=== PATIENT | female | born 1955 | race Caucasian/White ===

== ENCOUNTER 2017-07-29 09:41 | Outpatient (CLI) | payer OTHER ==
--- NOTE | 2017-07-29 10:18 | RAD ---
PA AND LATERAL CHEST: History: Cough. Comparison: 05-09-16 FINDINGS: There has been development of an anterior segment right upper lobe pneumonic appearing infiltrate. Th e left lung is clear. Heart size is within normal limits. There are arthrosclerotic changes of the ao rta. IMPRESSION: Right upper lobe pneumonia. POS: [facility]
== END 2017-07-29 09:42 | disposition home or self-care (01) ==
LOC: RAD-FRANK 09:41
PROVIDERS: ATTEND Nurse Practitioner Family
DX: J40 Bronchitis, not specified as acute or chronic (principal); J18.9 Pneumonia, unspecified organism
CPT/HCPCS: 71046

== ENCOUNTER 2017-09-21 14:09 | Outpatient (CLI) | payer OTHER | END 2017-09-21 14:10 | disposition home or self-care (01) | LOC: BICMAMMO 14:09 | PROVIDERS: ATTEND Nurse Practitioner Family | DX: Z12.31 Encounter for screening mammogram for malignant neoplasm of breast (principal) | CPT/HCPCS: 77063; 77067 ==

== ENCOUNTER 2017-11-17 15:43 | Outpatient (CLI) | payer OTHER ==
--- NOTE | 2017-11-17 15:55 | RAD ---
PA AND LATERAL VIEWS OF CHEST: Date: 11/17/17 HISTORY: Cough and fever. FINDINGS/IMPRESSION: Comparison made with exam of 07/29/17. The heart size is normal. The left lung is clear. The consolidation in the anterior segment of the right upper lobe noted on the previous exam demonstr ates interval improvement, but not complete resolution. Increased density is also seen in the right h ilar/perihialr region. Further evaluation with contrast enhanced CT scan is recommended. CODE T. POS: [facility]
== END 2017-11-17 15:44 | disposition home or self-care (01) ==
LOC: RAD-FRANK 15:43
PROVIDERS: ATTEND Nurse Practitioner Family
DX: R05 Cough (principal); R50.9 Fever, unspecified; R91.8 Other nonspecific abnormal finding of lung field
CPT/HCPCS: 71046

== ENCOUNTER 2017-11-23 13:36 | Outpatient (CLI) | payer OTHER ==
[~2017-11-23 13:36] MED LIST: Iopamidol 370 76% 100 ML VIAL ONE
== END 2017-11-23 13:37 | disposition home or self-care (01) ==
LOC: BICCT 13:36
PROVIDERS: ATTEND Nurse Practitioner Family
DX: J18.9 Pneumonia, unspecified organism (principal); R91.8 Other nonspecific abnormal finding of lung field; D71 Functional disorders of polymorphonuclear neutrophils; K44.9 Diaphragmatic hernia without obstruction or gangrene; I25.10 Atherosclerotic heart disease of native coronary artery without angina pectoris; E04.1 Nontoxic single thyroid nodule
CPT/HCPCS: 71260; 82565

== ENCOUNTER 2017-12-29 12:43 | Outpatient (CLI) | payer OTHER ==
--- NOTE | 2017-12-29 13:07 | RAD ---
PA AND LATERAL CHEST: Date: 12-29-17 History: Dyspnea. Comparison: 11-17-17 FINDINGS: There is patchy parenchymal opacity seen within the right hilar region with linear densities extendin g laterally. Similar but more prominent findings were present on the prior exam. Given the persistenc e of these findings since prior exam, CT thorax is recommended for further evaluation. Left lung is c lear. Cardiac silhouette and pulmonary vasculature are within normal limits. There is evidence of stew or granulomatous disease. No other interval change. IMPRESSION: Patchy parenchymal opacity and linear densities within the right hilar region and right mid lung zone . Findings could potentially represent residual pneumonia, but given persistence of this finding over this period of time, CT scan thorax is recommended to exclude neoplastic process. POS: [facility]
== END 2017-12-29 12:44 | disposition home or self-care (01) ==
LOC: RAD 12:43
PROVIDERS: ATTEND Internal Medicine Pulmonary Disease
DX: R06.00 Dyspnea, unspecified (principal); R91.8 Other nonspecific abnormal finding of lung field; J98.4 Other disorders of lung
CPT/HCPCS: 71046

== ENCOUNTER 2018-01-29 13:50 | Outpatient (CLI) | payer OTHER ==
--- NOTE | 2018-01-29 14:19 | RAD ---
CHEST 2 VIEWS: Date: 01/29/18 HISTORY: Dyspnea. COMPARISON: Chest radiograph dated 12/29/17. FINDINGS: Abnormal right hilar mass-like opacity with elevation of the minor fissure. Left lung relatively tracey r. IMPRESSION: Unchanged right upper lobe opacity with elevation of right minor fissure. This is concern ing for underlying malignancy. Follow-up CT chest recommended. CODE T. POS: [facility]
== END 2018-01-29 13:51 | disposition home or self-care (01) ==
LOC: RAD 13:50
PROVIDERS: ATTEND Internal Medicine Pulmonary Disease
DX: R06.00 Dyspnea, unspecified (principal); R91.8 Other nonspecific abnormal finding of lung field
CPT/HCPCS: 71046

== ENCOUNTER 2018-02-26 12:55 | Outpatient (CLI) | payer OTHER ==
--- NOTE | 2018-02-26 15:57 | CT ---
CT CHEST WITH CONTRAST: Multiple axial tomograms are obtained through the chest with IV enhancement. INDICATION: Recent chest film showed a right suprahilar fullness and evidence of volume loss in the right upper l obe with elevation of the fissure. FINDINGS: There is elevation of the minor fissure with focal parenchymal opacity along the fissure in the right upper lobe. This opacity has more of a linear configuration on coronal and sagittal imaging and sug gests focal volume loss which would explain the slight elevation. A focal mass is not identified. A n endobronchial lesion is not apparent by CT but should be excluded. Review of the lung reyes revealed scattered calcified granuloma in both lung reyes. There are 2 ca lcified granuloma in the posterior right lung base measuring up to 5 mm and there is calcified granul quang in the lingula on the left measuring approximately 3-4 mm. There is a noncalcified nodule in the right apical region measuring 3-4 mm. There is a 5 mm noncalci fied nodule in the right middle lobe peripherally. Mediastinum unremarkable with nonspecific lymph nodes. No adenopathy apparent. There is a sliding d iaphragmatic hernia. Comparison is made to a CT chest from [facility] dated 11/23/17. On juan miguel t exam, the right upper lobe opacification was present at that time and had no other confluent opacit y and was described as probably pneumonia. There has been significant decrease in the size of this p arenchymal opacity when compared to that exam and the findings today suggest residual atelectasis fro m a resolving pneumonia. IMPRESSION: 1. Persistent linear parenchymal opacity in the right upper lobe extending to the pleural surface. The parenchymal opacity has significantly decreased since 11/23/17 and findings probably represent res idual atelectasis in an area of resolving pneumonia. There is no evidence of hilar mass or adenopath y. 2. There are scattered pulmonary nodules as described above.. 3. Small fixed diaphragmatic hernia again noted. Suggest continued followup to assess continued resolution. POS: [facility]
== END 2018-02-26 12:56 | disposition home or self-care (01) ==
LOC: BICCT 12:55
PROVIDERS: ATTEND Internal Medicine Pulmonary Disease
DX: R91.1 Solitary pulmonary nodule (principal); K44.9 Diaphragmatic hernia without obstruction or gangrene; R91.8 Other nonspecific abnormal finding of lung field
CPT/HCPCS: 71260; 82565

== ENCOUNTER 2018-03-03 07:28 | Day surgery (SDC) | payer OTHER ==
[2018-03-02 14:20] VITALS: BMI 38.7
[~2018-03-03 07:28] MED LIST changes: -Iopamidol 370 76% 100 ML VIAL ONE; +Lidocaine 1% (PF) 30 ML VIAL ONE
[2018-03-03] MEDS ORDERED: Midazolam HCl 2 mg/2 ml Vial ONE (07:47)
[2018-03-03] MEDS ORDERED: Fentanyl 100 MCG/2 ML VIAL ONE (07:47)
[2018-03-03] MEDS ORDERED: Benzocaine 20% Spray 60 ML CAN ONE (07:47)
[2018-03-03] MEDS ORDERED: LIDOCAINE HCL 4% Topical Sol (4 ML SOLN.PK.G.) ONE (07:50)
--- NOTE | 2018-03-03 10:14 | OP ---
DATE OF PROCEDURE: 03/03/2018 SURGEON: Dr. Ozzie Wynn PROCEDURE: Diagnostic bronchoscopy. INDICATIONS: Right upper lung mass, atelectasis, rule out endobronchial disease. POST-BRONCHOSCOPY DIAGNOSIS: No evidence of any endobronchial obstruction, blood or pus. PROCEDURE IN DETAIL: After informed consent, the patient received DuoNeb and 4 mL of 4% lidocaine. During the procedure, she received 2 of Versed and 50 of fentanyl. The flexible video bronchoscope w as then passed via the right nostril. Pharynx, upper pharynx, and vocal cords were visualized and ma rked into the trachea, this was normal. [place] was sharp. Right lung was inspected initially. The right upper lung, particularly the apical anterior and posterior segments, no endobronchial obstructi on or blood or pus was seen. Area was lavaged with normal saline multiple times. The rest of the ri ght lung, middle and lower lobe was visualized and unremarkable. The left lung was inspected thereaf ter. The left upper and left lower visualized, once again no endobronchial obstruction, blood or pus was seen. The washings were obtained were sent for Gram stain and C&S. The patient tolerated the p rocedure well. BRIEF DISCHARGE NOTE: The patient tolerated the procedure well. Results will be made available to t he patient and family. Further recommendations after above.
== END 2018-03-03 10:35 | disposition home or self-care (01) ==
LOC: SDC 07:28
PROVIDERS: ATTEND Internal Medicine Pulmonary Disease
PROC: 0BJ08ZZ Inspection of Tracheobronchial Tree, Via Natural or Artificial Opening Endoscopic (ICD-10-PCS; principal; 2018-03-03)
DX: R91.8 Other nonspecific abnormal finding of lung field (principal); F17.200 Nicotine dependence, unspecified, uncomplicated
CPT/HCPCS: 87070; 87205; 99152; J2001; J2250; J3010; J7620

== ENCOUNTER 2018-07-08 13:36 | Outpatient (CLI) | payer OTHER ==
--- NOTE | 2018-07-08 14:57 | RAD ---
TWO VIEWS CHEST: DATE: 07/08/2018. PROVIDED CLINICAL HISTORY: Dyspnea. FINDINGS: Comparison 01/29/2018. Cardiac and mediastinal silhouette is unchanged in appearance. Interval decre ase in right upper lung zone parenchymal opacity. The lungs appear otherwise clear. There is no ple ural fluid or pneumothorax apparent. Degenerative changes are seen involving the thoracic spine. IMPRESSION: Interval decrease in conspicuity of right upper lung zone linear parenchymal opacity. POS: C
== END 2018-07-08 13:37 | disposition home or self-care (01) ==
LOC: RAD 13:36
PROVIDERS: ATTEND Internal Medicine Pulmonary Disease
DX: R06.00 Dyspnea, unspecified (principal)
CPT/HCPCS: 71046

== ENCOUNTER 2018-12-15 13:30 | Outpatient (CLI) | payer OTHER ==
--- NOTE | 2018-12-15 15:30 | MMO ---
Bilateral MAMMO Bilat Screen DDI+EBONY. CLINICAL HISTORY: Patient is 63 years old and is seen for screening. The patient has no family history of breast cancer. The patient has no personal history of cancer. The patient has a history of left Excisional Biopsy in 1993 - . VIEWS: The views performed were: bilateral craniocaudal with tomosynthesis and bilateral mediolateral oblique with tomosynthesis. FILMS COMPARED: The present examination has been compared to prior imaging studies performed at [facility] on 08/21/2014, 08/24/2015, 09/17/2016 and 09/21/2017. MAMMOGRAM FINDINGS: There are scattered fibroglandular densities. There is an asymmetry seen in the right breast in the central region and in the outer region. In the left breast, there are no suspicious masses, calcifications or areas of architectural distortion. IMPRESSION: ASYMMETRY IN THE RIGHT BREAST REQUIRES ADDITIONAL EVALUATION. RECOMMEND DIAGNOSTIC MAMMOGRAM. THE RESULTS OF THIS EXAM WERE SENT TO THE PATIENT. ACR BI-RADS Category 0 - Incomplete: Need additional imaging evaluation. [facility] will notify the patient of the need for additional imaging services. MAMMOGRAPHY NOTE: 1. A negative mammogram report should not delay a biopsy if a dominant of clinically suspicious mass is present. 2. Approximately 10% to 15% of breast cancers are not detected by mammography. 3. Adenosis and dense breasts may obscure an underlying neoplasm. Reported by: MADISYN PECK MD Electonically Signed: [id number]
== END 2018-12-15 13:31 | disposition home or self-care (01) ==
LOC: BICMAMMO 13:30
PROVIDERS: ATTEND Nurse Practitioner Family
DX: Z12.31 Encounter for screening mammogram for malignant neoplasm of breast (principal); N64.89 Other specified disorders of breast
CPT/HCPCS: 77063; 77067

== ENCOUNTER 2018-12-30 09:00 | Outpatient (CLI) | payer OTHER ==
--- NOTE | 2018-12-30 09:20 | RAD ---
EXAM: 2 views of the left humerus HISTORY: left arm pain COMPARISON: None FINDINGS: 2 views of the left humerus shows no evidence of acute fracture or dislocation. No degenera tive changes are seen. No soft tissue swelling is present. IMPRESSION: No evidence of acute osseous abnormality.
--- NOTE | 2018-12-30 09:21 | RAD ---
EXAM: 4 views of the right knee HISTORY: Knee pain COMPARISON: None FINDINGS: No knee effusion is seen. There is no evidence of acute fracture or dislocation. Mild trico mpartmental degenerative changes are seen. No soft tissue swelling is present. IMPRESSION: Mild degenerative changes without evidence of acute osseous abnormality.
== END 2018-12-30 09:01 | disposition home or self-care (01) ==
LOC: RAD-FRANK 09:00
PROVIDERS: ATTEND Nurse Practitioner Family
DX: M25.561 Pain in right knee (principal); M79.602 Pain in left arm; M17.11 Unilateral primary osteoarthritis, right knee

== ENCOUNTER 2019-01-04 13:32 | Outpatient (CLI) | payer OTHER ==
--- NOTE | 2019-01-04 14:13 | MMO ---
Right Breast MAMMO Unilat Diag DDI RT+EBONY. CLINICAL HISTORY: Patient is 63 years old and is seen for additional evaluation requested from prior study. The patient has no family history of breast cancer. The patient has no personal history of cancer. The patient has a history of left Excisional Biopsy in 1993 - cyst. VIEWS: The views performed were: right craniocaudal spot compression with tomosynthesis; right mediolateral oblique spot compression with tomosynthesis; and right mediolateral with tomosynthesis. FILMS COMPARED: The present examination has been compared to prior imaging studies performed at [facility] on 09/17/2016, 09/21/2017, 12/15/2018 and 01/04/2019. MAMMOGRAM FINDINGS: The focal asymmetry in the right outer mid posterior breast persists on comressed CC and ML views but not on comressed MLO view. It is not visualized on US. IMPRESSION: FINDING IN THE RIGHT BREAST IS PROBABLY BENIGN. FOLLOW-UP IN 6 MONTHS IS RECOMMENDED. THE RESULTS OF THIS EXAM WERE SENT TO THE PATIENT. ACR BI-RADS Category 3 - Probably benign finding - short interval follow-up suggested. [facility] will notify the patient of the need for additional imaging services. MAMMOGRAPHY NOTE: 1. A negative mammogram report should not delay a biopsy if a dominant of clinically suspicious mass is present. 2. Approximately 10% to 15% of breast cancers are not detected by mammography. 3. Adenosis and dense breasts may obscure an underlying neoplasm. Reported by: CALLY BARKER MD Electonically Signed: [id number]
--- NOTE | 2019-01-04 14:53 | ULT ---
RIGHT BREAST ULTRASOUND: 01/04/19 HISTORY: Abnormal mammogram. FINDINGS: Correlation is made with mammograms of today and 12/15/18. Sonographic evaluation of the central posterior aspect of the right breast in the 9 o'clock region de monstrates no abnormality. IMPRESSION: BIRADS 3: Probably Benign Finding Initial Short-Interval Follow-Up Suggested Initial short-term follow up (usually 6-month) right diagnostic mammogram is recommended. POS: OFF
== END 2019-01-04 13:33 | disposition home or self-care (01) ==
LOC: BICMAMMO 13:32
PROVIDERS: ATTEND Nurse Practitioner Family
DX: R92.8 Other abnormal and inconclusive findings on diagnostic imaging of breast (principal)
CPT/HCPCS: G0279

== ENCOUNTER 2019-07-07 09:01 | Outpatient (CLI) | payer OTHER ==
--- NOTE | 2019-07-07 09:35 | MMO ---
Right Breast MAMMO Unilat Diag DDI RT+EBONY. CLINICAL HISTORY: Patient is 64 years old and is seen for diagnostic exam. The patient has no family history of breast cancer. The patient has no personal history of cancer. The patient has a history of left Excisional Biopsy in 1993 - cyst. VIEWS: The views performed were: right craniocaudal with tomosynthesis; right mediolateral oblique with tomosynthesis; and right mediolateral with tomosynthesis. FILMS COMPARED: The present examination has been compared to prior imaging studies performed at [facility] on 09/21/2017, 12/15/2018 and 01/04/2019. This study has been interpreted with the assistance of computer-aided detection. MAMMOGRAM FINDINGS: There are scattered fibroglandular densities. Finding 1: There are stable benign appearing calcifications seen in the right breast. Finding 2: There is a stable focal asymmetry seen in the upper-outer region of the right breast. IMPRESSION: FINDING 1: STABLE CALCIFICATIONS IN THE RIGHT BREAST ARE BENIGN. FINDING 2: STABLE FOCAL ASYMMETRY IN THE RIGHT BREAST IS PROBABLY BENIGN. FOLLOW-UP IN 6 MONTHS IS RECOMMENDED. THE RESULTS OF THIS EXAM WERE SENT TO THE PATIENT. ACR BI-RADS Category 3 - Probably benign finding - short interval follow-up suggested. [facility] will notify the patient of the need for additional imaging services. MAMMOGRAPHY NOTE: 1. A negative mammogram report should not delay a biopsy if a dominant of clinically suspicious mass is present. 2. Approximately 10% to 15% of breast cancers are not detected by mammography. 3. Adenosis and dense breasts may obscure an underlying neoplasm. Reported by: ASHLEE CARLSON MD Electonically Signed: [id number]
== END 2019-07-07 09:02 | disposition home or self-care (01) ==
LOC: BICMAMMO 09:01
PROVIDERS: ATTEND Nurse Practitioner Family
DX: R92.8 Other abnormal and inconclusive findings on diagnostic imaging of breast (principal); R92.1 Mammographic calcification found on diagnostic imaging of breast; N64.89 Other specified disorders of breast
CPT/HCPCS: G0279

== ENCOUNTER 2019-07-07 11:55 | Outpatient (CLI) | payer OTHER ==
--- NOTE | 2019-07-07 12:20 | RAD ---
CHEST TWO VIEWS: HISTORY: Dyspnea. COMPARISON: 07/08/2018 FINDINGS: Stable linear parenchymal changes noted, including the right mid lung zone and perihilar region. Hear t size is within normal limits. Old granulomatous disease. IMPRESSION: 1. Chronic linear changes in the right mid lung zone. 2. Old granulomatous disease. 3. No significant acute intrathoracic disease. 4. Atherosclerosis of the aorta with ectasia. POS: OFF
== END 2019-07-07 11:56 | disposition home or self-care (01) ==
LOC: RAD 11:55
PROVIDERS: ATTEND Internal Medicine Pulmonary Disease
DX: R06.00 Dyspnea, unspecified (principal); D71 Functional disorders of polymorphonuclear neutrophils; I70.0 Atherosclerosis of aorta; I77.819 Aortic ectasia, unspecified site
CPT/HCPCS: 71046

== ENCOUNTER 2020-04-30 10:22 | Outpatient (CLI) | payer BC ==
--- NOTE | 2020-04-30 11:11 | MMO ---
Bilateral MAMMO Bilat Diag DDI+EBONY. CLINICAL HISTORY: Patient is 65 years old and is seen for diagnostic exam. The patient has no family history of breast cancer. The patient has no personal history of cancer. The patient has a history of left Excisional Biopsy in 1993 - . VIEWS: The views performed were: bilateral craniocaudal with tomosynthesis; bilateral mediolateral oblique with tomosynthesis; and bilateral mediolateral with tomosynthesis. FILMS COMPARED: The present examination has been compared to prior imaging studies performed at [facility] on 12/15/2018, 01/04/2019 and 07/07/2019. This study has been interpreted with the assistance of computer-aided detection. MAMMOGRAM FINDINGS: There are scattered fibroglandular densities. Finding 1: There are stable benign appearing calcifications seen in both breasts. Finding 2: There is a stable focal asymmetry seen in the upper-outer region of the right breast. There are no suspicious masses, suspicious calcifications, or new areas of architectural distortion. IMPRESSION: THERE IS NO MAMMOGRAPHIC EVIDENCE OF MALIGNANCY. A ROUTINE FOLLOW-UP MAMMOGRAM IN 1 YEAR IS RECOMMENDED. THE RESULTS OF THIS EXAM WERE SENT TO THE PATIENT. ACR BI-RADS Category 2 - Benign finding MAMMOGRAPHY NOTE: 1. A negative mammogram report should not delay a biopsy if a dominant of clinically suspicious mass is present. 2. Approximately 10% to 15% of breast cancers are not detected by mammography. 3. Adenosis and dense breasts may obscure an underlying neoplasm. Reported by: ASHLEE CARLSON MD Electonically Signed: [id number]
== END 2020-04-30 10:23 | disposition home or self-care (01) ==
LOC: BICMAMMO 10:22
PROVIDERS: ATTEND Nurse Practitioner Family
DX: R92.8 Other abnormal and inconclusive findings on diagnostic imaging of breast (principal)
CPT/HCPCS: 77066; G0279

== ENCOUNTER 2021-05-27 11:16 | Outpatient (CLI) | payer BC | END 2021-05-27 11:17 | disposition home or self-care (01) | LOC: BICMAMMO 11:16 | PROVIDERS: ATTEND Nurse Practitioner Family | DX: Z12.31 Encounter for screening mammogram for malignant neoplasm of breast (principal) | CPT/HCPCS: 77063; 77067 ==